=== PATIENT | male | born 1950 | race Caucasian/White ===

== ENCOUNTER 2020-01-09 14:56 | Observation (INO) | payer MEDICARE ==
[2020-01-09 16:36] LABS: Hematocrit 42 % (42-52); Hemoglobin 14.5 g/dL (14.0-18.0); Mean Corpuscular HGB Conc 35 g/dL (31-36); Mean Corpuscular Hemoglobin 28 pg (27-31); Mean Corpuscular Volume 82 fL (80-94); Mean Platelet Volume 7.7 fL (7.4-10.4); Platelet Count 218 10^3/uL (150-450); Red Cell Distribution Width 17 % (10-15); White Blood Count 8.3 10^3/uL (3.5-10.8)
[2020-01-09 16:40] LABS: INR 1.19 (0.82-1.09)
[2020-01-09 16:51] LABS: Albumin 4.7 g/dL (3.2-5.2); Albumin/Globulin Ratio 1.4 (1-3); BUN/Creatinine Ratio 21.4 (8-20); EGFR African American 86.9 (>60); EGFR Non-African American 71.8 (>60); Globulin 3.3 g/dL (2-4); Total Bilirubin 0.6 mg/dL (0.2-1.0)
[2020-01-09 16:52] LABS: Troponin I 0.01 ng/mL (<0.03)
[2020-01-09 17:23] LABS: ABS Basophils 0.1 10^3/ul (0-0.2); ABS Eosinophils 0.1 10^3/ul (0-0.6); ABS Lymphocytes 1.8 10^3/ul (1.0-4.8); ABS Monocytes 0.7 10^3/ul (0-0.8); ABS Neutrophils 5.6 10^3/ul (1.5-7.7); Eosinophil % 1.5 %; Lymphocyte % 21.3 %
[2020-01-09 17:28] LABS: Potassium 4.1 mmol/L (3.5-5.0)
--- NOTE | 2020-01-09 17:59 | ED ---
HPI Chest Pain - HPI Summary HPI Summary: This patient is a 69 year old male presenting to [facility] with a chief complaint of chest pain. The patient states it started this morning and it was intermittent. He said by mid day the pain radiated to his left jaw and shoulder. He describes the pain as a tightness. Pt denies any fever, chills, erythema of eyes, sore throat, SOB, cough, abdominal pain, N/V, dysuria, hematuria, myalgia, edema, rash, or dizziness. He states he has no cardiac Hx other than possible but undiagnosed hypertension, but he states his father had an VA at age 54 and was his cause of at age 73. His states recent stress as his father in law had passed in the last week and they were close with each other. - History of Current Complaint Chief Complaint: EDChestPainROMI Time Seen by Provider: 01/09/20 16:23 Hx Obtained From: Patient Onset/Duration: Started Hours Ago Pain Intensity: 0 Pain Scale Used: 0-10 Numeric - Allergy/Home Medications Allergies/Adverse Reactions: Allergies Allergy/AdvReac Type Severity Reaction Status Date / Time No Known Allergies Allergy Verified 01/09/20 15:07 Home Medications: Home Medications Ascorbic Acid TAB* [Vitamin C TAB*] 500 mg PO DAILY 10/02/18 [History Confirmed 01/09/20] Dutasteride 0.5 mg PO DAILY 10/02/18 [History Confirmed 01/09/20] PMH/Surg Hx/FS Hx/Imm Hx History: Reports: Hx Benign Prostatic Hyperplasia, Hx Kidney Stones Infectious Disease History: No Infectious Disease History: Denies: Hx of Known/Suspected MRSA, Traveled Outside the [place] in Last 30 Days - Family History Known Family History: Positive: None - Social History Alcohol Use: Rare Substance Use Type: Reports: None Smoking Status (MU): Never Smoked Tobacco Review of Systems Negative: Fever, Chills Negative: Erythema Negative: Sore Throat Positive: Chest Pain Negative: Shortness Of Breath, Cough Negative: Abdominal Pain, Vomiting, Nausea Negative: dysuria, hematuria Negative: Myalgia, Edema Negative: Rash Neurological/Mental Status: Other - Neg: Dizziness All Other Systems Reviewed And Are Negative: No Physical Exam - Summary Physical Exam Summary: Constitutional: Well-developed, Well-nourished, Alert. (-) Distressed Skin: Warm, Dry HENT: Normocephalic; Atraumatic Eyes: Conjunctiva normal Neck: Musculoskeletal ROM normal neck. (-) JVD, (-) Stridor, (-) Tracheal deviation Cardio: Rhythm regular, rate normal, Heart sounds normal; Intact distal pulses; The pedal pulses are 2+ and symmetric. Radial pulses are 2+ and symmetric. (-) Murmur Pulmonary/Chest wall: Effort normal. (-) Respiratory distress, (-) Wheezes, (-) Rales Abd: Soft, (-) tenderness, (-) Distension, (-) Guarding, (-) Rebound Musculoskeletal: (-) Edema Lymph: (-) Cervical adenopathy Neuro: Alert, Oriented x3 Psych: Mood and affect Normal Triage Information Reviewed: Yes Vital Signs On Initial Exam: Initial Vitals Temp Pulse Resp BP Pulse Ox 97.8 F 110 18 149/85 98 01/09/20 15:04 01/09/20 15:04 01/09/20 15:04 01/09/20 15:04 01/09/20 15:04 Vital Signs Reviewed: Yes Procedures - Sedation Patient Received Moderate/Deep Sedation with Procedure: No Diagnostics - Vital Signs Vital Signs Temp Pulse Resp BP Pulse Ox 01/09/20 17:28 98.3 F 81 17 174/107 97 01/09/20 15:04 97.8 F 110 18 149/85 98 - Laboratory Lab Results: Lab Results 01/09/20 01/09/20 01/09/20 Range/Units 16:27 16:27 16:27 WBC 8.3 (3.5-10.8) 10^3/uL RBC 5.10 (4.18-5.48) 10^6 /uL Hgb 14.5 (14.0-18.0) g/dL Hct 42 (42-52) % MCV 82 (80-94) fL MCH 28 (27-31) pg MCHC 35 (31-36) g/dL RDW 17 H (10-15) % Plt Count 218 (150-450) 10^3/uL MPV 7.7 (7.4-10.4) fL Neut % (Auto) 67.8 % Lymph % (Auto) 21.3 % [place] % (Auto) 8.3 % Eos % (Auto) 1.5 % Baso % (Auto) 1.1 % Absolute Neuts (auto) 5.6 (1.5-7.7) 10^3/ul Absolute Lymphs (auto) 1.8 (1.0-4.8) 10^3/ul Absolute Monos (auto) 0.7 (0-0.8) 10^3/ul Absolute Eos (auto) 0.1 (0-0.6) 10^3/ul Absolute Basos (auto) 0.1 (0-0.2) 10^3/ul Absolute Nucleated RBC 0.0 10^3/ul Nucleated RBC % 0.0 INR (Anticoag Therapy) 1.19 H (0.82-1.09) Sodium 137 (135-145) mmol/L Potassium 4.1 (3.5-5.0) mmol/L Chloride 108 (101-111) mmol/L Carbon Dioxide 21 L (22-32) mmol/L Anion Gap 8 (2-11) mmol/L BUN 22 (6-24) mg/dL Creatinine 1.03 (0.67-1.17) mg/dL Est GFR ( Amer) 86.9 (>60) Est GFR (Non-Af Amer) 71.8 (>60) BUN/Creatinine Ratio 21.4 H (8-20) Glucose 146 H (70-100) mg/dL Calcium 10.0 (8.6-10.3) mg/dL Total Bilirubin 0.60 (0.2-1.0) mg/dL AST 34 (13-39) U/L ALT 49 (7-52) U/L Alkaline Phosphatase 75 (34-104) U/L Troponin I 0.01 (<0.03) ng/mL Total Protein 8.0 (6.4-8.9) g/dL Albumin 4.7 (3.2-5.2) g/dL Globulin 3.3 (2-4) g/dL Albumin/Globulin Ratio 1.4 (1-3) Result Diagrams: 01/09/20 16:27 01/09/20 16:27 Lab Statement: Any lab studies that have been ordered have been reviewed, and results considered in the medical decision making process. - Radiology CXR Radiology Interpretation Completed By: ED Physician Summary of Radiographic Findings: No acute process. Pending official radiology report. - EKG 1500 Cardiac Rate: Tachycardia - 110 BPM EKG Rhythm: Sinus Tachycardia Summary of EKG Findings: No STEMI. ED Physician has reviewed and interpreted this EKG. Chest Pain Course/Dx - Course Course Of Treatment: This patient is a 69 year old male presenting to [facility] with a chief complaint of chest pain. The patient states it started this morning and it was intermittent. He said by mid day the pain radiated to his left jaw and shoulder. He describes the pain as a tightness. HEART score of 5. Patient does not have a PCP. Dr. Whitney, Hospitalist, accepted the patient for admission. This plan was discussed with the patient and he understands and agrees. - Diagnoses Provider Diagnoses: Unstable angina - Critical Care Time Critical Care Time: 30-74 min - 35 mins Discharge ED - Sign-Out/Discharge Documenting (check all that apply): Patient Departure - Admission - Discharge Plan Condition: Stable Disposition: ADMITTED TO [facility] Referrals: No Primary Care Phys,NOPCP [Primary Care Provider] - - Attestation Statements Document Initiated by Scribe: Yes Documenting Scribe: Martir Craig Provider For Whom Scribe is Documenting (Include Credential): Chaim Cooper MD Scribe Attestation: Martir Hanson, scribed for Chaim Cooper MD on 01/09/20 at 2058. Status of Scribe Document: Ready
[2020-01-09] MEDS ORDERED: Aspirin 81 mg CHEW TAB* 81 MG TAB.CHEW PO ONE (18:04)
[2020-01-09] MEDS ORDERED: Lisinopril TAB* 5 MG PO ONE (20:35)
[2020-01-09] MEDS ORDERED: Ondansetron INJ* 2 MG/ML VIAL IV PRN (20:37)
[2020-01-09] MEDS ORDERED: Acetaminophen TAB* 325 MG PO PRN (20:37)
[2020-01-09 20:59] LABS: HDL Cholesterol 24.7 mg/dL
[2020-01-09] MEDS ORDERED: Enoxaparin(*) 40 MG/0.4 ML SYR SUBCUT SCH (21:00)
[2020-01-09 21:12] LABS: TSH (Thyroid Stimulating Horm) 4.65 mcIU/mL (0.34-5.60)
--- NOTE | 2020-01-09 22:14 | HP ---
ADMISSION HISTORY AND PHYSICAL: DATE OF ADMISSION: 01/09/20. PRIMARY CARE PHYSICIAN: None. PROVIDER: Abigail Perez NP ATTENDING PHYSICIAN: Dr. Zaidi.* (DICTATED BY ABIGAIL PEREZ NP) CHIEF COMPLAINT: Chest pain. HISTORY OF PRESENT ILLNESS: This is a 69-year-old male with a past medical history significant for BPH and kidney stones, who came to the emergency room on 01/09/20 after experiencing chest pain. Starting last night, he had had taco salad and then when he went to bed, he felt heaviness in his chest, which he attributed to indigestion and just down with that, and then this morning he woke up with chest pain that by mid day started to radiate to his left jaw and shoulder, and noted tingling down his left arm. He reported chest tightness and pressure that was intermittent and that is why we had him to come to the emergency room. He stated that he normally sees Dr. Cosby about 4 times a year and each time his blood pressures anywhere between 130s and 160s. He has not seen a PCP in over 40 years. In the emergency room, he received 324 mg of aspirin. EKG was performed, which was negative for any ST-T changes. Labs were drawn and chest x-ray was taken. The Hospitalists were asked to evaluate the patient for admission. PAST MEDICAL HISTORY: Prostatitis, kidney stones, ureteral stricture, hemorrhoids, diverticulosis, and BPH. PAST SURGICAL HISTORY: He had a prostate biopsy in 2017 and polypectomy in 2019. HOME MEDICATIONS: 1. Ascorbic acid 500 mg p.o. daily. 2. Dutasteride 0.5 mg p.o. daily. ALLERGIES: No known drug allergies. FAMILY HISTORY: Father had an MD at age 54 and 73, at which time he passed. SOCIAL HISTORY: Never smoked tobacco, rarely drinks any alcohol. Denies any recreational substance use and is . REVIEW OF SYSTEMS: A 12-point system review was performed, which was positive for radiating chest pain, left jaw and shoulder pain, chest tightness and pressure, left arm tingling and was negative for fever, chills, palpitations, abdominal pain, nausea, vomiting or issues with his bowel or bladder. PHYSICAL EXAMINATION GENERAL: This is a well-developed gentleman, seen resting in bed, face is flushed, in no acute distress noted. VITAL SIGNS: 98.3 Fahrenheit, 75 pulse, 18 respirations, 92% oxygen on room air , 141/91 blood pressure. HEENT: Conjunctivae pink and moist. PERRLA. EOMs intact. Oropharynx clear. Mucous membranes moist. NECK: Supple. RESPIRATORY: Lung sounds clear throughout bilaterally on room air. No accessory muscle use noted. CARDIAC: S1, S2 present. Heart rate regular. No murmurs, gallops or rubs appreciated. Negative carotid bruits. Negative for JVD. ABDOMEN: Softly rounded, nondistended, nontender, with positive bowel sounds x4. MUSCULOSKELETAL: No clubbing or cyanosis of the digits. Able to move all extremities. NEUROLOGIC: Sensation intact to light touch. No focal deficits appreciated. SKIN: Intact. No rashes or open areas appreciated. Face is flushed. PSYCH: He is alert and oriented x4, thought content organized. DIAGNOSTIC STUDIES/LAB DATA: Awaiting official radiologic read of chest x-ray though there appears to be no acute cardiopulmonary process. Pertinent lab data: No leukocytosis. Carbon dioxide 21. BUN and creatinine ratio of 21.4, glucose 146. Troponin 0.01. Awaiting lipids, TSH, and hemoglobin A1c. ASSESSMENT AND PLAN: My impression is this is a 69-year-old male with the past medical history significant for benign prostatic hypertrophy, diverticulosis, and ureteral stricture, who was admitted on 01/09/20 for chest pain likely secondary to uncontrolled hypertension. 1. Chest pain. There, EKG showed sinus tachycardia with no ST depression or elevation or any other significant changes. Troponins have been stable at 0.01. We will await one more lab draw. Have added on lipids, TSH, and hemoglobin A1c. Heart score was 6 on arrival. Ordered a transthoracic echocardiogram. He will be admitted to [address] [place] [address] with telemetry with the idea that should he be stable in the overnight, he will be discharged with instructions to follow up and have an outpatient stress test, and he agreed to establish primary care with [facility]. 2. Uncontrolled hypertension. Blood pressures have been as high as 174/108 in the emergency room. From his history, it sounds like he runs between 130s and 160s, and has been for at least the past year. We will start him on lisinopril 5 mg. 3. Benign prostatic hypertrophy. Continue dutasteride. 4. DVT prophylaxis: Initiate Lovenox. 5. Code status is full code. CONDITION: Fair. DISPOSITION: Admit OBV to [address] [place] [address]. TIME SPENT: Time spent with the patient is about 60 minutes with half of that spent [id number]. ABIGAIL PEREZ, GEAR ROLLER [id number]/[facility] #: [id number] FRANDY
[2020-01-10 06:44] LABS: ABS Basophils 0.1 10^3/ul (0-0.2); ABS Eosinophils 0.3 10^3/ul (0-0.6); ABS Lymphocytes 2.1 10^3/ul (1.0-4.8); ABS Monocytes 0.6 10^3/ul (0-0.8); ABS Neutrophils 3.1 10^3/ul (1.5-7.7); Eosinophil % 4.9 %; Hematocrit 40 % (42-52); Hemoglobin 13.7 g/dL (14.0-18.0); Lymphocyte % 34.8 %; Mean Corpuscular HGB Conc 34 g/dL (31-36); Mean Corpuscular Hemoglobin 28 pg (27-31); Mean Corpuscular Volume 83 fL (80-94); Mean Platelet Volume 7.8 fL (7.4-10.4); Nucleated Red Blood Cells % 0.2; Platelet Count 162 10^3/uL (150-450); Red Blood Count 4.85 10^6 /uL (4.18-5.48); Red Cell Distribution Width 18 % (10-15); White Blood Count 6.1 10^3/uL (3.5-10.8)
[2020-01-10 07:03] LABS: BUN/Creatinine Ratio 20.2 (8-20); Calcium 9.5 mg/dL (8.6-10.3); EGFR African American 81.4 (>60); EGFR Non-African American 67.3 (>60); Potassium 4.2 mmol/L (3.5-5.0)
[2020-01-10] MEDS ORDERED: metFORMIN* 500 MG TAB PO SCH ×2 (09:00→21:00)
[2020-01-10] MEDS ORDERED: Lisinopril TAB* 5 MG PO SCH (09:00)
[2020-01-10] MEDS ORDERED: Finasteride TAB* 5 MG PO SCH (09:00)
[2020-01-10 15:58] VITALS: BP 126/73
[2020-01-10] MEDS ORDERED: Atorvastatin* 40 MG TAB PO SCH (17:00)
[2020-01-11] MEDS ORDERED: Aspirin EC TAB* 81 MG TAB.EC PO SCH (09:00)
--- NOTE | 2020-01-12 10:06 | DS ---
CC: Dr. Frank Pretty, [facility]; Dr. Cosby * DISCHARGE SUMMARY: DATE OF ADMISSION: 01/09/20 DATE OF DISCHARGE: 01/10/20 PRIMARY DIAGNOSIS: Chest pain, suspected angina pectoris. SECONDARY DIAGNOSES: 1. Hyperlipidemia. 2. Hypertension. 3. Type 2 diabetes. 4. History of nephrolithiasis. 5. Benign prostatic hypertrophy. 6. History of prostatitis. 7. Ureteral strictures. 8. Diverticulosis. MEDICATIONS ON DISCHARGE: 1. Vitamin C 500 mg p.o. daily. 2. Dutasteride 0.5 mg p.o. daily. 3. Acetaminophen as needed. 4. Aspirin 81 mg p.o. daily. 5. Atorvastatin 40 mg p.o. q.p.m. 6. Lisinopril 5 mg p.o. daily. 7. Metformin 500 mg p.o. b.i.d. CONSULTATIONS: None. PROCEDURES: None. COMPLICATIONS: None. HOSPITAL COURSE: A 69-year-old man presented with chest pain that radiated to his left jaw and shoulder and tingling in his left arm. The patient had not seen a primary care doctor in more than 40 years, so he was newly diagnosed with hypertension, diabetes, and hyperlipidemia. His LDL cholesterol was 120, hemoglobin A1c was 7.5, and his blood sugars ranged from 94 to 183 and his blood pressure was 174/107 on presentation and was 126/73 on discharge. The patient was admitted to the hospital for telemetry monitoring and serial troponins. His initial EKG showed sinus tachycardia of [address] or T- wave changes to suggest ischemia. His troponin testing was negative on three occasions. His laboratory testing was otherwise within normal limit with the exception of hemoglobin that fell from 14.5 to 13.7 during the hospital stay. The patient had resolution of his chest pain and no further findings of active ischemia. He was thought to be low risk for unstable coronary artery disease the next week and was discharged to home with followup plan. The followup plan was to have an outpatient exercise stress test to rule out cardiac ischemia. He is also to have outpatient echocardiogram to assess for LVH due to untreated hypertension. DISPOSITION: Home. ACTIVITY: As tolerated. DIET: Will follow low fat. STATUS: Observation. CONDITION: Stable. FOLLOWUP PLAN: Establish primary care with the [facility] within 1 week. [id number]/[facility] #: [id number] UNITED HEALTH SERVICESPaula
== END 2020-01-10 15:30 | disposition home or self-care (01) ==
LOC: ED 14:56 → MEDTELE 20:37
PROVIDERS: ADMIT Nurse Practitioner Adult Health; ATTEND Internal Medicine
DX: R07.9 Chest pain, unspecified (principal); R68.84 Jaw pain; M25.512 Pain in left shoulder; R20.2 Paresthesia of skin; E78.5 Hyperlipidemia, unspecified; I10 Essential (primary) hypertension; E11.9 Type 2 diabetes mellitus without complications; Z87.442 Personal history of urinary calculi; N40.0 Benign prostatic hyperplasia without lower urinary tract symptoms; K57.90 Diverticulosis of intestine, part unspecified, without perforation or abscess without bleeding; N13.5 Crossing vessel and stricture of ureter without hydronephrosis; Z79.82 Long term (current) use of aspirin; Z79.899 Other long term (current) drug therapy; Z79.84 Long term (current) use of oral hypoglycemic drugs; R00.0 Tachycardia, unspecified
CPT/HCPCS: 36415; 71045; 80048; 80053; 80061; 83036; 84443; 84484; 85025; 85610; 93005; 96372; 99284; A9270-GY; G0378; J1650